=== PATIENT | male | born 1950 | race Caucasian/White ===

== ENCOUNTER 2018-03-17 15:51 | Inpatient (IN) | payer MEDICAID ==
[~2018-03-17] VITALS: Ht 175.3 cm; Wt 103.9 kg
[2018-03-17] MEDS ORDERED: ONDANSETRON HCL 4MG/2ML INJ IV STA (16:28)
[2018-03-17] MEDS ORDERED: MORPHINE SULFATE 4 MG/ML CPJ (NOT FOR IM USE) IV STA (16:28)
[2018-03-17] MEDS ORDERED: MORPHINE SULFATE 2 MG/ML CPJ (NOT FOR IM USE) IV STA (16:38)
[2018-03-17 16:55] LABS: BASOPHILS % 0.6 % (0.0-2.0); EOSINOPHILS % 3.5 % (0.0-5.0); HEMATOCRIT. 43.2 % (42.0-52.0); HEMOGLOBIN. 14.7 g/dL (14.0-18.0); LYMPHOCYTES % 33.3 % (20.0-50.0); MEAN CORPUSCULAR HEMOGLOBIN 32.3 pg (28.0-32.0); MEAN CORPUSCULAR VOLUME 94.7 fL (80.0-94.0); MEAN PLATELET VOLUME 8.8 fl (7.4-10.4); NEUTROPHILS % 51.6 % (40.0-76.0); PLATELET 210 x1000/uL (130-400); RED BLOOD CELL COUNT 4.56 mill/uL (4.7-6.1)
[2018-03-17 17:02] LABS: CHLORIDE 108 mEq/L (98-107)
[2018-03-17 17:05] LABS: INR 1.1; PROTHROMBIN TIME 10.7 sec (9.1-11.1)
[2018-03-17 17:08] LABS: ETHANOL BLOOD < 10 mg/dL
[2018-03-17] MEDS ORDERED: SODIUM CHLORIDE 0.9% 500 ML IV ONE (17:22)
[2018-03-17 18:16] LABS: CLARITY URINE CLEAR (CLEAR); COLOR URINE YELLOW (YELLOW); KETONES URINE NEGATIVE (NEGATIVE); LEUKOCYTE ESTERASE URINE NEGATIVE (NEGATIVE); NITRITE URINE NEGATIVE (NEGATIVE); OCCULT BLOOD URINE NEGATIVE (NEGATIVE); PH URINE 7.5 (4.5-8.0); PROTEIN URINE NEGATIVE (NEGATIVE); SPECIFIC GRAVITY URINE 1.017 (1.005-1.030); UROBILINOGEN URINE 0.2 E.U./dL (0.2-1.0)
[2018-03-17 18:25] LABS: *AMPHETAMINES SCREEN URINE NEGATIVE (NEGATIVE); *BARBITURATES SCREEN URINE NEGATIVE (NEGATIVE); *BENZODIAZEPINES SCREEN URINE NEGATIVE (NEGATIVE); *COCAINE SCREEN URINE NEGATIVE (NEGATIVE)
[2018-03-17 18:26] LABS: CANNABINOID URINE SCREEN NEGATIVE (NEGATIVE); METHADONE URINE SCREEN NEGATIVE (NEGATIVE); OPIATES URINE SCREEN PRESUMTIVE POSITIVE (NEGATIVE); PHENCYCLIDINE URINE SCREEN NEGATIVE (NEGATIVE)
[2018-03-17] MEDS ORDERED: ASPIRIN 325MG EC TABLET PO ONE (20:45)
[2018-03-17] MEDS ORDERED: ENOXAPARIN 40MG/0.4ML SYR SUBCUT SCH (22:15)
[2018-03-17] MEDS ORDERED: ONDANSETRON HCL 4MG/2ML INJ IV PRN (22:15)
[2018-03-17] MEDS ORDERED: LORAZEPAM 2MG/ML CPJ IV PRN (22:15)
[2018-03-18] MEDS: SODIUM CHLORIDE 0.9% 1,000 ML IV SCH ×2 (00:36→21:13)
[2018-03-18] MEDS: METOPROLOL TARTRATE 50MG TABLET PO SCH ×3 (01:01→21:00)
[2018-03-18 01:02] VITALS: BP 185/70
[2018-03-18] MEDS ORDERED: CLONIDINE 0.1MG TABLET PO PRN (01:15)
[2018-03-18] MEDS ORDERED: HYDROCODONE/ACETAMINOPHEN 5/325MG TABLET PO PRN (01:15)
[2018-03-18] MEDS ORDERED: FUROSEMIDE 40MG/4ML VIAL IVP SCH (01:21)
[2018-03-18] MEDS: HYDRALAZINE HCL 25MG TABLET PO SCH ×4 (01:29→21:13)
[2018-03-18 04:00] VITALS: BP 137/63
[2018-03-18 08:00] VITALS: BP 122/64
[2018-03-18 08:32] LABS: CHLORIDE 107 mEq/L (98-107)
[2018-03-18 08:36] LABS: BASOPHILS % 0.3 % (0.0-2.0); HEMATOCRIT. 43.9 % (42.0-52.0); HEMOGLOBIN. 14.7 g/dL (14.0-18.0); MEAN CORPUSCULAR HEMOGLOBIN 31.9 pg (28.0-32.0); MEAN PLATELET VOLUME 8.7 fl (7.4-10.4); MONOCYTES % 10.6 % (2.0-8.0); NEUTROPHILS % 55.1 % (40.0-76.0); PLATELET 210 x1000/uL (130-400); RED BLOOD CELL COUNT 4.62 mill/uL (4.7-6.1)
[2018-03-18 08:38] LABS: PHOSPHORUS 3.4 mg/dL (2.5-4.9)
[2018-03-18 08:41] LABS: CREATINE KINASE 100 IU/L (39-308)
[2018-03-18] MEDS: ACETAMINOPHEN 325MG TABLET PO PRN ×2 (09:02→21:18)
[2018-03-18] MEDS: ENOXAPARIN 30MG/0.3ML SYR SUBCUT SCH ×2 (09:02→21:14)
[2018-03-18 12:00] VITALS: BP 110/39
[2018-03-18 15:54] LABS: CREATINE KINASE MB FRACTION 1.2 ng/mL (0.5-3.6)
[2018-03-18 20:00] VITALS: BP 111/55
[2018-03-19] VITALS: BP 125/50
[2018-03-19 04:00] VITALS: BP 121/65
[2018-03-19 05:43] LABS: BASOPHILS % 0.5 % (0.0-2.0); EOSINOPHILS % 4.1 % (0.0-5.0); HEMATOCRIT. 41.7 % (42.0-52.0); HEMOGLOBIN. 14.2 g/dL (14.0-18.0); LYMPHOCYTES % 38.6 % (20.0-50.0); MEAN CORPUSCULAR HEMOGLOBIN 32.6 pg (28.0-32.0); MEAN CORPUSCULAR VOLUME 95.9 fL (80.0-94.0); MEAN PLATELET VOLUME 8.3 fl (7.4-10.4); MONOCYTES % 9.7 % (2.0-8.0); NEUTROPHILS % 47.1 % (40.0-76.0); PLATELET 186 x1000/uL (130-400); RED BLOOD CELL COUNT 4.35 mill/uL (4.7-6.1)
[2018-03-19 05:51] LABS: CHLORIDE 111 mEq/L (98-107)
[2018-03-19] MEDS: HYDRALAZINE HCL 25MG TABLET PO SCH ×2 (05:55→13:58)
[2018-03-19 06:02] LABS: PHOSPHORUS 3.2 mg/dL (2.5-4.9)
[2018-03-19 08:00] VITALS: BP 120/60
[2018-03-19] MEDS: METOPROLOL TARTRATE 50MG TABLET PO SCH (09:13)
[2018-03-19] MEDS: ENOXAPARIN 30MG/0.3ML SYR SUBCUT SCH (09:14)
[2018-03-19 10:04] VITALS: BP_SYST 120; BP_SYST 135; BP_DIAS 63; BP_DIAS 67
[2018-03-19] MEDS ORDERED: REGADENOSON 0.4 MG/5 ML IV NR (10:30)
[2018-03-19] MEDS ORDERED: REGADENOSON 0.4 MG/5 ML IV ONE (11:37)
[2018-03-19 11:45] VITALS: BP 116/60
[2018-03-19] MEDS: ACETAMINOPHEN 325MG TABLET PO PRN (14:33)
[2018-03-19 16:00] VITALS: BP 120/63
== END 2018-03-19 16:30 | disposition home or self-care (01) | DRG 199 ==
LOC: EDBEDREQ 16:37 → ER 17:03 → 6WST 18:34 → EDBEDREQ 18:39 → EDBEDREQTM 18:39 → SUPCPDRO 22:03 → ENRESERV 23:12
PROVIDERS: ADMIT Internal Medicine Nephrology; ATTEND Internal Medicine Nephrology
DX: I16.0 Hypertensive urgency (principal); N17.9 Acute kidney failure, unspecified; E78.00 Pure hypercholesterolemia, unspecified; I11.9 Hypertensive heart disease without heart failure; R74.8 Abnormal levels of other serum enzymes; E11.9 Type 2 diabetes mellitus without complications; R55 Syncope and collapse; I25.2 Old myocardial infarction; Z87.891 Personal history of nicotine dependence; Z91.19 Patient's noncompliance with other medical treatment and regimen; Z88.1 Allergy status to other antibiotic agents
CPT/HCPCS: 36415; 71045; 78452; 80048; 80305; 82140; 82550; 82553; 82962; 83605; 83735; 84100; 84484; 86850; 86900; 93005; 93017; 93306; 96361; 96374; 96375; 97161; 99285; A9500; G0482; J1650; J1940; J2270; J2405; J2785; J7030; J7040